=== PATIENT | male | born 1940 | race Hispanic/Latino ===

== ENCOUNTER 2017-11-14 10:05 | Day surgery (SDC) | payer OTHER ==
[~2017-11-14] VITALS: Ht 170.2 cm; Wt 89.4 kg
[~2017-11-14 10:05] MED LIST: SODIUM CHLORIDE 0.9% 1000ML 1,000 ML IV ONE
[2017-11-14 12:33] VITALS: BP 114/78
[2017-11-14] MEDS ORDERED: FLUT16H NASAL (13:23)
[2017-11-14] MEDS ORDERED: TYL3LL PO (13:23)
[2017-11-14] MEDS ORDERED: PEG15DRO4 OP (13:23)
[2017-11-14] MEDS ORDERED: PROPOFOL 10 MG/ML 20ML VIAL IV ONE (13:49)
[2017-11-14] MEDS ORDERED: CEFAZOLIN SODIUM 1 GM VIAL ONE (13:50)
[2017-11-14 14:03] VITALS: BP 127/81
== END 2017-11-14 14:50 | disposition home or self-care (01) ==
LOC: ENDO 10:05 → DAH 10:05 → ENDO 14:50
PROVIDERS: ATTEND Internal Medicine
DX: K31.89 Other diseases of stomach and duodenum (principal); Z79.899 Other long term (current) drug therapy; Z79.82 Long term (current) use of aspirin; Z85.9 Personal history of malignant neoplasm, unspecified
CPT/HCPCS: 43246; A4606; J0690; J2704; J7030 ×2

== ENCOUNTER 2023-10-28 07:18 | Day surgery (SDC) | payer OTHER ==
[2023-10-28] VITALS (10 sets, daily range): BP systolic 108–149; BP diastolic 69–82; PULSE 51–61; RESP 14–18
[~2023-10-28] VITALS: Ht 172.7 cm; Wt 88.5 kg
[~2023-10-28 07:18] MED LIST changes: +OMEP40CA21 PO; -SODIUM CHLORIDE 0.9% 1000ML 1,000 ML IV ONE; +VITAMIN D PO
[2023-10-28] MEDS ORDERED: LEVO50CA4 PO (08:32)
[2023-10-28] MEDS: 0.9%NACL 1000ML 1,000 ML IV ONE (08:32)
[2023-10-28] MEDS ORDERED: PROPOFOL 10 MG/ML 20ML VIAL IV ONE (10:11)
== END 2023-10-28 11:55 | disposition home or self-care (01) ==
LOC: DAH 07:18
PROVIDERS: ATTEND Internal Medicine Gastroenterology
DX: Z12.11 Encounter for screening for malignant neoplasm of colon (principal); R13.10 Dysphagia, unspecified; K64.1 Second degree hemorrhoids; K64.4 Residual hemorrhoidal skin tags; K57.30 Diverticulosis of large intestine without perforation or abscess without bleeding; K31.89 Other diseases of stomach and duodenum; K21.00 Gastro-esophageal reflux disease with esophagitis, without bleeding; E55.9 Vitamin D deficiency, unspecified; Z86.010 Personal history of colon polyps; Z80.0 Family history of malignant neoplasm of digestive organs
CPT/HCPCS: 43239; 43248; J7030 ×2; J2704; A4620; G0105; A4215; A4223; A7002; A4222; A4221; A4663; A4606; J3490